=== PATIENT | male | born 1955 | race Caucasian/White ===

== ENCOUNTER 2019-09-30 15:21 | Emergency (ER) | payer MEDICARE, SELFPAY ==
[2019-09-30 15:29] VITALS: BP 190/110; PULSE 120; RESP 20; TEMP 36.6; O2SAT 96; BMI 67.8
--- NOTE | 2019-09-30 15:32 | ED_ITS ---
Entered by Theodore Saez, acting as scribe for HPI - General Adult General: Chief complaint: Extremity Problem,Nontraumatic Stated complaint: leg wounds not healing Time Seen by Provider: 09/30/19 15:38 History of Present Illness: HPI narrative: 64 yo male presents with leg wound not healing. Pt states that his left leg is painful, seeping fluid and his leg is swollen. pt states that he has had this pain and these wounds since last may. Pt states that he only takes over the counter pills that is supposed to take water retention off. Pt states that he hasn't been seen by a doctor for about 10 years. MD complaint: leg wound not healing Associated symptoms: Reports rash; Deny chest pain, dyspnea, headache(s), malaise, nausea, palpitations or vomiting Review of Systems Const: Denies: fever, chills, body aches, change in appetite, change in weight, fatigue or malaise Eyes: Denies: change in vision, blurry vision, blind spots, photophobia, eye discomfort or yellow eyes ENMT: Denies: throat pain, uvular edema, enlarged tonsils, painful swallowing, hoarseness or mouth pain Card: Reports: edema; Denies: chest pain, palpitations, irregular heart rhythm or swelling of feet/ankles Resp: Denies: shortness of breath, productive cough, non-productive cough or wheezing GI: Denies: abdominal pain, nausea, vomiting, vomiting blood or coffee grounds in vomit : Denies: flank pain, difficulty urinating, painful urination, urinary frequency, urinary urgency, urinary hesitancy, urinary dribbling or difficulty starting urination Musc: Denies: neck pain, back pain, extremity pain, extremity swelling or joint pain Skin/Breast: Reports: rash, skin pain, skin tenderness and non-healing lesion; Denies: itching Neuro: Denies: headache, numbness in extremities, weakness in extremities, lack of coordination or vertigo Psych: Denies: anxiety, depression, mood swings, panic attacks, hopelessness or loss of interest Endo: Denies: excessive urination, excessive thirst, tired all the time, cold intolerance, flushing or hot flashes All/Imm: Denies: hives, throat swelling or tongue swelling PFSH ED PFSH: Statuses (acute, chronic, etc) shown below reflect problem list status as previously entered and may not be historically accurate Medical History Hypertension (Acute) Surgical History H/O: knee surgery (Acute) Hx of cholecystectomy (Acute) Social History Smoking and tobacco status: never smoked Physical Exam Const: COMMON NORMALS: no apparent distress and oriented x3 GENERAL APPEARANCE: cooperative HENMT: COMMON NORMALS: normocephalic HEAD & SCALP: normal to inspection and normocephalic THROAT: no uvular edema Eye: COMMON NORMALS: PERRL PUPIL: Yes PERRL Neck/C-Spine: COMMON NORMALS: full ROM, no JVD and thyroid normal THYROID: thyroid normal Lymph: LYMPHATIC: no lymphadenopathy noted Chest: COMMONS NORMALS: inspection of chest normal Resp: COMMON NORMALS: normal respiratory effort Cardio: COMMON NORMALS: no JVD, regular rate and regular rhythm RATE: regular rate RHYTHM: regular rhythm GI: INSPECTION: Yes normal to inspection : COMMON NORMALS: Yes no CVA tenderness BLADDER/KIDNEY EXAM: Yes no CVA tenderness Back/Pelvis: COMMON NORMALS: no CVA tenderness Extremity: COMMON NORMALS: full ROM Neuro: COMMON NORMALS: oriented x3 Skin: NARRATIVE SKIN EXAM: wounds on bilateral legs, pt put calamine lotion on his left leg. Course ED course: Patient was evaluated in room 13, a heplock was placed. He was administered Metoprolol 2.5 mg for his rate/BP which responded nicely. He was on a valve mechanic. Labs obtained. he has not seen a physician in over 10 years. He has been using an OTC diuretic. He will be discharged to home with blood pressure, diuretic and antibiotic. He is encouraged to follow up with pcp of choice. Vital Signs: Vital signs: Vital Signs Temperature 97.8 F 09/30/19 15:29 Pulse Rate 120 H 09/30/19 15:29 Respiratory Rate 20 H 09/30/19 15:29 Blood Pressure 190/110 09/30/19 15:29 Pulse Oximetry 96 09/30/19 15:29 MDM - General Adult Lab Data: Labs: Lab Results 02/09/20 02/09/20 Range/Units 15:53 15:53 WBC 11.5 H (4.0-10.0) 10^3/ uL RBC 4.50 (4.1-5.3) 10^6/u L Hgb 12.9 (11.7-16.6) g/dL Hct 40.9 L (42.0-52.0) % MCV 90.9 (80-94) fL MCH 28.7 (28.0-34.0) pg MCHC 31.5 (30.0-36.0) g/dL RDW 13.8 (12.1-15.1) % Plt Count 379 (130-400) 10^3/c mm MPV 9.2 (7.4-10.4) fL Neut % (Auto) 80.4 % Lymph % (Auto) 10.5 % Glenn % (Auto) 6.3 % Eos % (Auto) 1.7 % Baso % (Auto) 0.6 % Neut # (Auto) 9.2 H (1.8-7.7) 10^3/u L Lymph # (Auto) 1.2 (0.8-4.8) 10^3/u L Glenn # (Auto) 0.7 (0.2-0.9) 10^3/u L Eos # (Auto) 0.2 (0.0-0.8) 10^3/u L Baso # (Auto) 0.1 (0.0-0.1) 10^3/u L Nucleated RBC % (a uto) 0 % Nucleated RBCs # 0.0 /100WBC Sodium 135 L (136-145) mmol/L Potassium 4.2 (3.5-5.1) mmol/L Chloride 96 L (98-107) mmol/L Carbon Dioxide 25 (22-29) mmol/L Anion Gap 18.2 (5-19) BUN 20 (8-23) mg/dL Creatinine 1.8 H (0.7-1.2) mg/dL GFR Calculation 38.1 L (90-130) mL/min Glucose 138 H (65-115) mg/dL Calcium 9.6 (8.5-10.5) mg/dL Magnesium 2.4 H (1.7-2.3) mg/dL Total Bilirubin 0.5 (0.15-1.2) mg/dL AST 20 (0-40) U/L ALT 16 (0-41) U/L Alkaline Phosphata se 142 H (40-130) IU/L Total Protein 8.4 (6.6-8.7) g/dL Albumin 3.3 L (3.5-5.2) g/dL Globulin 5.1 H (1.3-4.6) g/dL TSH 2.60 (0.27-4.20) uIU/ mL Discharge Plan Discharge Patient Disposition: Home, Self-Care Clinical Impression: Lower extremity edema Cellulitis Qualifiers: Site of cellulitis: extremity Site of cellulitis of extremity: lower extremity Laterality: left Qualified Code(s): L03.116 - Cellulitis of left lower limb Condition: Stable Prescriptions: New metoprolol succinate 50 mg capsule,sprinkle,ER 24hr 50 mg PO DAILY Qty: 14 RF: 0 furosemide 40 mg tablet 40 mg PO DAILY Qty: 14 RF: 0 KCL 20 mEq 20 meq PO DAILY Qty: 14 RF: 0 doxycycline hyclate 100 mg capsule 100 mg PO BID 21 Days Qty: 42 RF: 0 Referrals: Jenn Wise FNP [Primary Care Provider] - (Patient to follow up with pcp) Discharge Diet: Usual diet and Low Salt Discharge Activity: Resume usual activity Activity Restrictions/Additional Instructions: truck rental manager to assist with PCP for follow up appointment Coding Level of Care Code ED Chief Investigator for Chg Fwd Exam Problem Focused The documentation recorded by the Se norman Kialy, accurately reflects the service I personally performed and the decisions made by Paul kirby Connie, DO Sep 30, 2019 15:21
[2019-09-30] MEDS: FUROsemide 10 mg/mL SDV 4mL 40 MG IVP (15:53)
[2019-09-30 16:08] LABS: Basophils # 0.1 10^3/uL (0.0-0.1); Basophils % 0.6 %; Eosinophils # 0.2 10^3/uL (0.0-0.8); Eosinophils % 1.7 %; Hematocrit 40.9 % (42.0-52.0); Hemoglobin 12.9 g/dL (11.7-16.6); Lymphocytes # 1.2 10^3/uL (0.8-4.8); Lymphocytes % 10.5 %; Mean Corpuscular HGB Conc 31.5 g/dL (30.0-36.0); Mean Corpuscular Hemoglobin 28.7 pg (28.0-34.0); Mean Corpuscular Volume 90.9 fL (80-94); Mean Platelet Volume 9.2 fL (7.4-10.4); Monocytes # 0.7 10^3/uL (0.2-0.9); Monocytes % 6.3 %; Neutrophils # 9.2 10^3/uL (1.8-7.7); Neutrophils % 80.4 %; Nucleated Red Blood Cells % 0 %; Platelet Count 379 10^3/cmm (130-400); Red Cell Distribution Width 13.8 % (12.1-15.1); White Blood Count 11.5 10^3/uL (4.0-10.0)
[2019-09-30 16:35] LABS: Alanine Aminotransferase 16 U/L (0-41); Albumin Level 3.3 g/dL (3.5-5.2); Alkaline Phosphatase 142 IU/L (40-130); Anion Gap 18.2 (5-19); Aspartate Amino Transferase 20 U/L (0-40); Blood Urea Nitrogen 20 mg/dL (8-23); Calcium 9.6 mg/dL (8.5-10.5); Carbon Dioxide 25 mmol/L (22-29); Chloride 96 mmol/L (98-107); Globulin 5.1 g/dL (1.3-4.6); Glomerular Filtration Rate 38.1 mL/min (90-130); Glucose 138 mg/dL (65-115); Magnesium 2.4 mg/dL (1.7-2.3); Potassium 4.2 mmol/L (3.5-5.1); Sodium 135 mmol/L (136-145); Total Bilirubin 0.5 mg/dL (0.15-1.2); Total Protein 8.4 g/dL (6.6-8.7)
[2019-09-30] MEDS: metoprolol tartrate 1 mg/1 mL SDV 5 mL 2.5 MG IV (16:40)
[2019-09-30 17:20] VITALS: BP 166/96; PULSE 102; RESP 15; O2SAT 96
--- NOTE | 2019-10-02 13:58 | DCPLANNER ---
donor services manager had message to get patient established with a primary care physician. donor services manager called patient, spoke with patients . Patients stated that patient was wanting a referral to [facility]. donor services manager called [facility], spoke with Keri and a follow up appointment was scheduled for Saturday, October 05, 2019 at 10:[address] Roca. donor services manager called patients and gave her the appointment information.
--- NOTE | 2019-10-16 10:37 | DCPLANNER ---
Patient did attend appointment scheduled for 10.05.19 with [facility]ound Care.
== END 2019-09-30 17:21 | disposition home or self-care (01) ==
PROVIDERS: Emergency Provider Emergency Medicine Emergency Medical Services; Family Provider Nurse Practitioner; PCP Nurse Practitioner
DX: L03.116 Cellulitis of left lower limb (principal); I10 Essential (primary) hypertension
CPT/HCPCS: 36415; 80053; 83735; 84443; 85025; 96374; 96375; 99282; 99283; J1940; J3490

== ENCOUNTER 2019-10-19 14:47 | Outpatient (RCR) | payer MEDICARE, SELFPAY | END 2019-10-20 23:59 | disposition home or self-care (01) | LOC: WOUND 14:47 | PROVIDERS: Family Provider Nurse Practitioner; PCP Nurse Practitioner; Visit Provider Surgery | DX: I96 Gangrene, not elsewhere classified (principal); L97.822 Non-pressure chronic ulcer of other part of left lower leg with fat layer exposed | CPT/HCPCS: 11042; 99203; G0463 ==

== ENCOUNTER 2019-10-26 14:48 | Outpatient (RCR) | payer MEDICARE, SELFPAY | END 2019-11-20 23:59 | disposition home or self-care (01) | LOC: WOUND 14:48 | PROVIDERS: Family Provider Nurse Practitioner; PCP Nurse Practitioner; Visit Provider Surgery | DX: I87.2 Venous insufficiency (chronic) (peripheral) (principal); L97.822 Non-pressure chronic ulcer of other part of left lower leg with fat layer exposed | CPT/HCPCS: 11042; 11045 ==